=== PATIENT | male | born 1965 | race Caucasian/White ===

== ENCOUNTER 2016-07-08 03:40 | Emergency (ER) | payer BC, SELFPAY ==
[2016-07-08] MEDS ORDERED: ASPIRIN 81 MG CHEW TABLET As Ordered ONE (04:34)
[2016-07-08] MEDS ORDERED: GI COCKTAIL 50ML BTL(HYOSCYAMINE/MAALOX/LIDOCAINE VISCOUS)(1:3:1) As Ordered ONE (04:34)
[2016-07-08 04:43] LABS: BASO % 0.5 % (0.0-1.0); EOS # 0.1 K/mm3 (0.0-0.50); EOS % 2.3 % (0.0-3.0); LARGE UNSTAINED CELL # 0.1 K/mm3 (0.0-0.4); LARGE UNSTAINED CELL % 2.6 % (0.0-4.0); LYMPH # 2.6 K/mm3 (1.5-4.5); LYMPH % 45.1 % (24.0-44.0); MEAN CORPUSCULAR HEMOGLOBIN 31.2 pg (27.0-33.0); MEAN CORPUSCULAR HGB CONC 35.3 g/dl (32.0-36.5); MEAN CORPUSCULAR VOLUME 88.4 fl (80.0-96.0); MONO # 0.4 K/mm3 (0.0-0.8); MONO % 6.8 % (0.0-5.0); NEUTROPHILS # 2.3 K/mm3 (1.8-7.7); NEUTROPHILS % 42.6 % (36.0-66.0); PLATELET COUNT, AUTOMATED 174 k/mm3 (150-450); WHITE BLOOD COUNT 5.4 K/mm3 (4.0-10.0)
[2016-07-08 04:51] LABS: ANION GAP 10 MEQ/L (8-16); BLOOD UREA NITROGEN 17 MG/DL (7-18); CARBON DIOXIDE LEVEL 30 MEQ/L (21-32); CHLORIDE LEVEL 104 MEQ/L (98-107); CREATININE FOR GFR 0.99 MG/DL (0.70-1.30); GLOMERULAR FILTRATION RATE > 60.0 (>56); GLUCOSE, FASTING 108 MG/DL (70-105); POTASSIUM SERUM 3.6 MEQ/L (3.5-5.1); SODIUM LEVEL 144 MEQ/L (136-145)
--- NOTE | 2016-07-08 08:25 | REP ---
Clinical: Chest pain . Comparison: 12/30/06 . Technique: PA and lateral. Findings: The mediastinum and cardiac silhouette are normal. The lung cordova are clear and without acute consolidation, effusion, or pneumothorax. The skeletal structures are intact and normal. Impression: 1. No acute cardiopulmonary process. Signed by Vic Roldan MD 07/08/2016 08:17 A
--- NOTE | 2016-07-08 10:26 | EDDOCDS ---
Physician Documentation [facility] Name: Chintan Adkins Age: 51 yrs Sex: Male : 1965 Arrival Date: 07/08/2016 Time: 03:40 Bed OBSERVATION Private MD: Disposition: 07/08/16 10:00 Discharged to Home/Self Care. Impression: Chest pain, unspecified. - Condition is Stable. - Discharge Instructions: Nonspecific Chest Pain. - Medication Reconciliation, Local Pharmacy Hours form. - Follow up: Private Physician; When: Call to arrange an appointment; Reason: Continuance of care. - Problem is new. - Symptoms have improved. Historical: - Allergies: SULFA (SULFONAMIDES); - Home Meds: 1. none - PMHx: Sleep Apnea w/o CPAP; irregular heart beat; - PSHx: implant for irregular heart rate; Tonsillectomy; Hernia repair; Lasik Surgery; - Social history: Smoking status: Patient states was never smoker of tobacco. No barriers to communication noted, The patient speaks fluent Frisian, Speaks appropriately for age. - Family history: Not pertinent. - : The pt / caregiver states he / she is not on anticoagulants. Home medication list is obtained from the patient. - Exposure Risk Screening:: None identified. Vital Signs: 07/08 03:52 BP 171 / 91; Pulse 84; Resp 16; Pulse Ox 100% on R/A; Weight 93.89 kg / 206.99 lbs; cz Height 5 ft. 10 in. (177.80 cm); 03:55 Temp 98.6(TE); cz 03:59 BP 183 / 91 (auto/); mlc 03:59 Pulse 72 MON; Pulse Ox 100% ; mlc 04:19 BP 166 / 93 (auto/); mlc 04:19 Pulse 70 MON; Pulse Ox 96% ; mlc 04:37 Pulse 78 MON; Pulse Ox 96% ; mlc 04:46 Pulse 66 MON; Pulse Ox 97% ; mlc 04:46 BP 156 / 86 (auto/); mlc 04:59 BP 154 / 91 (auto/); mlc 04:59 Pulse 74 MON; Pulse Ox 95% ; mlc 05:19 BP 129 / 63 (auto/); mlc 05:20 Pulse 62 MON; Pulse Ox 94% ; mlc 05:39 Pulse 60 MON; Pulse Ox 96% ; mlc 05:39 BP 143 / 69 (auto/); mlc 05:59 Pulse 62 MON; Pulse Ox 92% ; mlc 05:59 BP 124 / 59 (auto/); mlc 06:19 BP 140 / 79 (auto/); mlc 06:19 Pulse 64 MON; Pulse Ox 95% ; mlc 06:26 Pulse 60 MON; Pulse Ox 95% ; mlc 08:36 BP 122 / 67 (auto/); ml6 08:36 Pulse 64 MON; Resp 16; Pulse Ox 94% on R/A; ml6 09:06 BP 106 / 52 (auto/); ml6 09:06 Pulse 64 MON; Resp 16; Pulse Ox 95% on R/A; ml6 09:36 BP 128 / 61 (auto/); ml6 09:36 Pulse 66 MON; Resp 16; Pulse Ox 97% on R/A; ml6 10:06 BP 113 / 56 (auto/); ml6 10:06 Pulse 66 MON; Resp 16; Pulse Ox 98% on R/A; Pain 0/10; ml6 10:20 BP 111 / 58; Pulse 65; Resp 16; Temp 98.3(O); Pulse Ox 98% on R/A; Pain 0/10; ml6 03:52 Body Mass Index 29.70 (93.89 kg, 177.80 cm) cz MDM: 03:45 ECG WITH READING ER PHYS+CARDIAG ordered. EDMS 04:30 Aspirin Chewable Tablet 243 mg PO once ordered. mm11 04:30 Bulb Weeder/Pulse Ox/q 30 min VS ordered. mm11 04:30 IV Saline Lock ordered. mm11 04:30 Rhythm Strip to chart ordered. mm11 04:30 Undress patient appropriately for examination ordered. mm11 04:31 Basic Metabolic Profile Ordered. EDMS 04:31 CBC with Diff Ordered. EDMS 04:31 Cardiac Injury Profile Ordered. EDMS 04:31 Troponin Ordered. EDMS 04:31 Chest, 2 View (pa\E\lat) Ordered. EDMS 04:33 GI Cocktail - (Alum-Mag Hydroxide-Simeth 30 ml, Lidocaine 10 ml, Hyoscyamine 10 ml) PO mm11 once; Pre-mixed 50mL unit dose ordered. 04:38 Financial registration complete. [facility] 04:38 [facility] Payment Agreement was scanned into [employer] and attached to record. [facility] 04:54 Basic Metabolic Profile Reviewed. mm11 04:54 CBC with Diff Reviewed. mm11 04:54 Cardiac Injury Profile Reviewed. mm11 04:54 Troponin Reviewed. mm11 05:53 Repeat EKG (put time details section) ordered. mm11 05:53 Redraw CIP &Troponin (put time in details section) ordered. mm11 05:57 Redraw CIP &Troponin (put time in details section) complete. ml3 05:57 Repeat EKG (put time details section) complete. ml3 05:57 CARDIAC MARKER PANEL Ordered. EDMS 05:58 Misc Automation Qa Analyst Order ordered. mm11 05:58 ECG WITH READING ER PHYS ordered. EDMS 05:59 Misc Automation Qa Analyst Order complete. ml3 06:27 The patient was assigned to Observation Status due to uncertainty of mm11 diagnosis/disposition, and remained under my care. Administered Medications: 04:38 Drug: Aspirin 243 mg [aspirin 81 mg chewable tablet (3 tabs)] Route: PO; mlc 05:25 Follow up: Response: No Adverse Reaction [facility] [place]:38 Drug: GI Cocktail - (Alum-Mag Hydroxide-Simeth Suspension 225 mg-200 mg-25 mg/5 mL 30 mlc ml, Lidocaine Liquid 2 % 10 ml, Hyoscyamine Liquid 10 ml) Route: PO; 05:25 Follow up: Response: Pain is decreased [facility] [place] Signatures: Dispatcher [employer] EDOliverio Segundo RN RN Vijay Chow, Yarn Mercerizer Operator Unit ml3 Ilia Garvey, DO DO mm11 Ilia Ziegler RN RN ml6 Yulissa Churchill RN RN [facility] [place] Zenobia Flores Aria Rodríguez MD MD The chart was reviewed and I authenticate all verbal orders and agree with the evaluation and treatment provided.Attachments: 04:38 [facility] Payment Agreement [facility]
--- NOTE | 2016-07-08 10:26 | EDDOCDS ---
Nurse's Notes [facility] Name: Chintan Adkins Age: 51 yrs Sex: Male : 1965 Arrival Date: 07/08/2016 Time: 03:40 Bed OBSERVATION Private MD: Diagnosis: Chest pain, unspecified Presentation: 07/08 03:46 Presenting complaint: Patient states: he started with chest pain at 0255 pt went away cz and returned presently pt denies chest pain at this time pt took antiacids at home. 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 Adult Sepsis Screening: The patient does not have new or worsening altered mentation. Patient's respiratory rate is less than 22. Systolic blood pressure is greater than 100. Patient has a qSOFA score of 0- Negative Sepsis Screen. Suicide/Homicide risk assessment- the patient denies having any suicidal and/or homicidal ideations and does not present with any other emotional, behavioral or mental health complaints. Status: Patient is not a environmental services coordinator or dependent. Transition of care: patient was not received from another setting of care. 03:46 Acuity: NAOMY Level 2 cz 03:46 Method Of Arrival: Walkin/Carried/Asstd cz 03:57 Red Flag criteria, patient assessed and taken directly to a bed. cz Triage Assessment: 03:52 General: Appears in no apparent distress. Pain: Denies pain. Pt Declines HIV testing. cz Historical: - Allergies: SULFA (SULFONAMIDES); - Home Meds: 1. none - PMHx: Sleep Apnea w/o CPAP; irregular heart beat; - PSHx: implant for irregular heart rate; Tonsillectomy; Hernia repair; Lasik Surgery; - Social history: Smoking status: Patient states was never smoker of tobacco. No barriers to communication noted, The patient speaks fluent Arabic, Speaks appropriately for age. - Family history: Not pertinent. - : The pt / caregiver states he / she is not on anticoagulants. Home medication list is obtained from the patient. - Exposure Risk Screening:: None identified. Screenin:59 Screening information is obtained from the patient. Fall risk: No risks identified. mlc Assistance ADL's: requires no assistance with activities of daily living. Abuse/DV Screen: The patient / caregiver reports he/she is: not in a situation that causes fear, pain or injury. Nutritional screening: No deficits noted. Advance Directives: Currently, there is a health care proxy, Sarah Charles, significant other . There is no Power of Bods Developer. home support is adequate. Assessment: 04:10 General: Appears in no apparent distress, comfortable, Behavior is cooperative. Pain: mlc Location: xyphoid area and mid-sternal area Pain currently is 1 out of 10 on a pain scale. Pain does not radiate. Neurological: Level of Consciousness is awake, alert, obeys commands, Oriented to person, place, time. Cardiovascular: Capillary refill < 3 seconds Heart tones S1 S2 present Rhythm is sinus rhythm. Respiratory: Airway is patent Respiratory effort is even, unlabored, Respiratory pattern is regular, Breath sounds are clear bilaterally. Derm: Skin is normal. 04:38 Reassessment: Patient appears in no apparent distress at this time. Patient states mlc symptoms have not improved. pt medicated per order. 05:24 Reassessment: Patient appears in no apparent distress at this time. Patient states mlc feeling better. pt ambulating to bathroom, tolerated well. resp easy/unlabored. pt reports decreased in chest pain after GI cocktail. . 06:32 Reassessment: Patient appears in no apparent distress at this time. pt resting mlc comfortably in bed, resp easy/unlabored. pt resting with eyes closed. . 07:25 General: Appears in no apparent distress, comfortable, Behavior is appropriate for age, ml6 cooperative. Pain: Denies pain. Neurological: No deficits noted. Level of Consciousness is awake, alert, Oriented to person, place, time. Cardiovascular: No deficits noted. Capillary refill < 3 seconds is brisk in bilateral fingers toes Heart tones S1 S2 present Edema is absent. Pulses are all present. Rhythm is regular. Respiratory: No deficits noted. Airway is patent Respiratory effort is even, unlabored, Respiratory pattern is regular, symmetrical, Breath sounds are clear bilaterally. GI: No deficits noted. Abdomen is flat, non- distended Bowel sounds present X 4 quads. 08:30 Reassessment: Patient appears in no apparent distress at this time. Patient denies pain ml6 at this time. Patient states feeling better. Patient states symptoms have improved. 09:30 Reassessment: Patient appears in no apparent distress at this time. Patient denies pain ml6 at this time. Patient states feeling better. Patient states symptoms have improved. patient awaiting test results. 10:16 General: Appears in no apparent distress, comfortable, Behavior is appropriate for age, ml6 cooperative. Pain: Denies pain. Neurological: No deficits noted. Level of Consciousness is awake, alert, Oriented to person, place, time. Cardiovascular: No deficits noted. Capillary refill < 3 seconds is brisk in bilateral fingers toes. Respiratory: No deficits noted. Airway is patent Respiratory effort is even, unlabored, Respiratory pattern is regular, symmetrical, Breath sounds are clear bilaterally. GI: Abdomen is flat, non- distended Bowel sounds present X 4 quads. Vital Signs: 03:52 BP 171 / 91; Pulse 84; Resp 16; Pulse Ox 100% on R/A; Weight 93.89 kg; Height 5 ft. 10 cz in. (177.80 cm); 03:55 Temp 98.6(TE); cz 03:59 BP 183 / 91 (auto/); mlc 03:59 Pulse 72 MON; Pulse Ox 100% ; mlc 04:19 BP 166 / 93 (auto/); mlc 04:19 Pulse 70 MON; Pulse Ox 96% ; mlc 04:37 Pulse 78 MON; Pulse Ox 96% ; mlc 04:46 Pulse 66 MON; Pulse Ox 97% ; mlc 04:46 BP 156 / 86 (auto/); mlc 04:59 BP 154 / 91 (auto/); mlc 04:59 Pulse 74 MON; Pulse Ox 95% ; mlc 05:19 BP 129 / 63 (auto/); mlc 05:20 Pulse 62 MON; Pulse Ox 94% ; mlc 05:39 Pulse 60 MON; Pulse Ox 96% ; mlc 05:39 BP 143 / 69 (auto/); mlc 05:59 Pulse 62 MON; Pulse Ox 92% ; mlc 05:59 BP 124 / 59 (auto/); mlc 06:19 BP 140 / 79 (auto/); mlc 06:19 Pulse 64 MON; Pulse Ox 95% ; mlc 06:26 Pulse 60 MON; Pulse Ox 95% ; mlc 08:36 BP 122 / 67 (auto/); ml6 08:36 Pulse 64 MON; Resp 16; Pulse Ox 94% on R/A; ml6 09:06 BP 106 / 52 (auto/); ml6 09:06 Pulse 64 MON; Resp 16; Pulse Ox 95% on R/A; ml6 09:36 BP 128 / 61 (auto/); ml6 09:36 Pulse 66 MON; Resp 16; Pulse Ox 97% on R/A; ml6 10:06 BP 113 / 56 (auto/); ml6 10:06 Pulse 66 MON; Resp 16; Pulse Ox 98% on R/A; Pain 0/10; ml6 10:20 BP 111 / 58; Pulse 65; Resp 16; Temp 98.3(O); Pulse Ox 98% on R/A; Pain 0/10; ml6 03:52 Body Mass Index 29.70 (93.89 kg, 177.80 cm) Vitals: 03:52 Log In Time: July 08, 2016 at 03:41. cz ED Course: 03:41 Patient visited by Meghan Solis Reg. hs2 03:41 Patient moved to Waiting hs2 03:42 Yulissa Churchill RN is Primary Nurse. cz 03:42 Patient moved to 10 cz 03:48 Ilia Garvey DO is Attending Physician. mm11 03:48 Patient visited by Ilia Garvey DO. mm11 03:49 Triage Initiated cz 03:59 tack puller machine on. Pulse ox on. NIBP on. mlc 03:59 Inserted saline lock: 18 gauge in left antecubital area and blood collected. [facility] patient tolerated the procedure well. 04:12 Patient visited by Yulissa Churchill RN. mlc 04:12 EKG done. (by ED staff). Reviewed by Ilia Garvey DO. mlc 04:19 The patient / caregiver is instructed regarding the plan of care and ED course. mlc 04:29 Patient visited by Ilia Garvye DO. mm11 04:32 Basic Metabolic Profile Sent. mlc 04:32 CBC with Diff Sent. mlc 04:32 Cardiac Injury Profile Sent. mlc 04:32 Troponin Sent. mlc 04:38 [facility] [place] Payment Agreement was scanned into [employer] and attached to record. sl 04:39 Patient visited by Yulissa Churchill RN. mlc 05:25 Patient visited by Yulissa Churchill RN. mlc 06:25 Patient visited by Ilia Garvey DO. mm11 06:33 Patient visited by Yulissa Churchill RN. mlc 07:01 Patient moved to OBSERVATION ml6 07:06 Attending Physician role handed off by Ilia Garvey DO fg 07:06 Aria Telles MD is Attending Physician. fg 07:58 Primary Nurse role handed off by Yulissa Churchill RN btw 08:46 Chest, 2 View (pa\E\lat) Returned. EDMS 09:02 CARDIAC MARKER PANEL Sent. ml6 09:15 EKG done. (by ED staff). Reviewed by Aria Telles MD. ct3 09:19 Patient visited by Rozina Nascimento PCA. ct3 10:20 Discontinued IV bleeding controlled, pressure dressing applied, No redness/swelling at ml6 site. No procedures done that require assistance. Administered Medications: 04:38 Drug: Aspirin 243 mg [aspirin 81 mg chewable tablet (3 tabs)] Route: PO; mlc 05:25 Follow up: Response: No Adverse Reaction mlc 04:38 Drug: GI Cocktail - (Alum-Mag Hydroxide-Simeth Suspension 225 mg-200 mg-25 mg/5 mL 30 mlc ml, Lidocaine Liquid 2 % 10 ml, Hyoscyamine Liquid 10 ml) Route: PO; 05:25 Follow up: Response: Pain is decreased [facility] [place] Order Results: Lab Order: Basic Metabolic Profile; [facility] 07/08/16 04:00 Test: GLUCOSE, FASTING; Value: 108; Range: 70-105; Abnormal: Above high normal; Units: MG/DL; Status: F Test: BLOOD UREA NITROGEN; Value: 17; Range: 7-18; Units: MG/DL; Status: F Test: CREATININE FOR GFR; Value: 0.99; Range: 0.70-1.30; Units: MG/DL; Status: F Test: GLOMERULAR FILTRATION RATE; Value: > 60.0; Range: >56; Status: F Test: SODIUM LEVEL; Value: 144; Range: 136-145; Units: MEQ/L; Status: F Test: POTASSIUM SERUM; Value: 3.6; Range: 3.5-5.1; Units: MEQ/L; Status: F Test: CHLORIDE LEVEL; Value: 104; Range: 98-107; Units: MEQ/L; Status: F Test: CARBON DIOXIDE LEVEL; Value: 30; Range: 21-32; Units: MEQ/L; Status: F Test: ANION GAP; Value: 10; Range: 8-16; Units: MEQ/L; Status: F Test: CALCIUM LEVEL; Value: 9.0; Range: 8.5-10.1; Units: MG/DL; Status: F Test Note: ; Units are mL/min/1.73 m2 Chronic Kidney Disease Staging per NKF: Stage I & II GFR >=60 Normal to Mildly Decreased Stage III GFR 30-59 Moderately Decreased Stage IV GFR 15-29 Severely Decreased Stage V GFR <15 Very Little GFR Left ESRD GFR <15 on DIE WELDER Lab Order: CBC with Diff; SPEC'M 07/08/16 04:00 Test: WHITE BLOOD COUNT; Value: 5.4; Range: 4.0-10.0; Units: K/mm3; Status: F Test: RED BLOOD COUNT; Value: 4.96; Range: 4.30-6.10; Units: M/mm3; Status: F Test: HEMOGLOBIN; Value: 15.5; Range: 14.0-18.0; Units: g/dl; Status: F Test: HEMATOCRIT; Value: 43.8; Range: 42.0-52.0; Units: %; Status: F Test: MEAN CORPUSCULAR VOLUME; Value: 88.4; Range: 80.0-96.0; Units: fl; Status: F Test: MEAN CORPUSCULAR HEMOGLOBIN; Value: 31.2; Range: 27.0-33.0; Units: pg; Status: F Test: MEAN CORPUSCULAR HGB CONC; Value: 35.3; Range: 32.0-36.5; Units: g/dl; Status: F Test: RED CELL DISTRIBUTION WIDTH; Value: 12.0; Range: 11.5-14.5; Units: %; Status: F Test: PLATELET COUNT, AUTOMATED; Value: 174; Range: 150-450; Units: k/mm3; Status: F Test: NEUTROPHILS %; Value: 42.6; Range: 36.0-66.0; Units: %; Status: F Test: LYMPH %; Value: 45.1; Range: 24.0-44.0; Abnormal: Above high normal; Units: %; Status: F Test: MONO %; Value: 6.8; Range: 0.0-5.0; Abnormal: Above high normal; Units: %; Status: F Test: EOS %; Value: 2.3; Range: 0.0-3.0; Units: %; Status: F Test: BASO %; Value: 0.5; Range: 0.0-1.0; Units: %; Status: F Test: LARGE UNSTAINED CELL %; Value: 2.6; Range: 0.0-4.0; Units: %; Status: F Test: NEUTROPHILS #; Value: 2.3; Range: 1.8-7.7; Units: K/mm3; Status: F Test: LYMPH #; Value: 2.6; Range: 1.5-4.5; Units: K/mm3; Status: F Test: MONO #; Value: 0.4; Range: 0.0-0.8; Units: K/mm3; Status: F Test: EOS #; Value: 0.1; Range: 0.0-0.50; Units: K/mm3; Status: F Test: BASO #; Value: 0.0; Range: 0.0-0.2; Units: K/mm3; Status: F Test: LARGE UNSTAINED CELL #; Value: 0.1; Range: 0.0-0.4; Units: K/mm3; Status: F Lab Order: Cardiac Injury Profile; SPEC'M 07/08/16 04:00 Test: CPK CREATINE PHOSPHOKINASE; Value: 116; Range: 39-308; Units: U/L; Status: F Test: CK-MB VALUE MASS; Value: 1.0; Range: 0.0-3.6; Units: NG/ML; Status: F Test: MB/CK RELATIVE INDEX; Value: 0.86; Range: < OR =4; Status: F Test Note: ; DIAGNOSIS CRITERIA MMB ng/ml Relative Index (RI) NON-AMI < or = 5 N/A LOVE ZONE > 5 < or = 4 AMI > 5 > 4 Lab Order: Troponin; SPEC'M 07/08/16 04:00 Test: TROPONIN I; Value: < 0.02; Range: < 0.10; Units: NG/ML; Status: F Test Note: ; Troponin I Reference Interval for [employer] LOCI: 99th Percentile= 0.00-0.045 ng/ml Risk Stratification: <= 0.10 ng/ml Decreased Risk for Adverse Clinical Events. 0.10-1.50 ng/ml Increased Risk for Adverse Clinical Events. Evaluation of additional criterion and/or repeat testing in 2-6 hours is suggested to rule out myocardial damage. >= 1.50 ng/ml Indicative of Myocardial Injury. Lab Order: CARDIAC MARKER PANEL; SPEC'M 07/08/16 09:01 Test: CPK CREATINE PHOSPHOKINASE; Value: 110; Range: 39-308; Units: U/L; Status: F Test: CK-MB VALUE MASS; Value: 1.0; Range: 0.0-3.6; Units: NG/ML; Status: F Test: MB/CK RELATIVE INDEX; Value: 0.90; Range: < OR =4; Status: F Test: TROPONIN I; Value: < 0.02; Range: < 0.10; Units: NG/ML; Status: F Test Note: ; DIAGNOSIS CRITERIA MMB ng/ml Relative Index (RI) NON-AMI < or = 5 N/A LOVE ZONE > 5 < or = 4 AMI > 5 > 4 Radiology Order: Chest, 2 View (pa\E\lat) Test: Chest, 2 View (pa\E\lat) REASON FOR EXAMINATION: Chest Pain; Clinical: Chest pain .; ; Comparison: 12/30/06 .; ; Technique: PA and lateral.; ; Findings:; The mediastinum and cardiac silhouette are normal. The lung cordova are clear and; without acute consolidation, effusion, or pneumothorax. The skeletal structures; are intact and normal.; ; Impression:; 1. No acute cardiopulmonary process.; ; ; Signed by; Vic Roldan MD 07/08/2016 08:17 A; Outcome: 10:00 Discharge ordered by Provider. fg 10:25 Discharge Assessment: patient administered narcotics - no. The following High Risk ml6 Discharge criteria are identified: None. Discharged to home ambulatory. Condition: stable. Discharge instructions given to patient, Instructed on discharge instructions, follow up and referral plans. medication usage, Demonstrated understanding of instructions, medications, Pt was receptive of discharge instructions/ teaching. No special radiology studies were completed. Property :Personal belongings accompany Pt. 10:25 Patient left the ED. ml6 Signatures: Dispatcher [employer] EDMS Oliverio Hope RN RN cz Maynard, Matthew, DO DO mm11 Ilia Ziegler RN RN ml6 Roly Rowan PA PA robw Rozina Nascimento, COMPRESSOR STATION CHIEF ENGINEER COMPRESSOR STATION CHIEF ENGINEER ct3 Churchill,Yulissa,NEREYDA RN anjali Flores, Aria May MD MD fg Stanton, Hillary, Reg Reg hs2 MTDD
--- NOTE | 2016-07-08 19:40 | ECGEPIP ---
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
--- NOTE | 2016-07-08 19:44 | ECGEPIP ---
Stationary ECG Study [facility] - ED Test Date: 2016-07-08 Pat Name: RADHA RAMSEY Department: Room: - Gender: M Patient Liaison: ct : 1965 Requested By: JENNIFER Daniels Order Number: [id number] Reading MD: [place] Measurements Intervals [place] Rate: 61 P: 25 SD: 179 QRS: 11 QRSD: 96 T: -4 QT: 372 QTc: 375 Interpretive Statements SINUS RHYTHM NSTTW ABNORMALITY SIMILAR 4:08 Electronically Signed On 07-08-2016 19:44:00 EST by [place]
--- NOTE | 2016-07-10 11:26 | EDDOCDS ---
Physician Documentation [facility] Name: Chintan Adkins Age: 51 yrs Sex: Male : 1965 Arrival Date: 07/08/2016 Time: 03:40 Bed OBSERVATION Private MD: Disposition: 07/08/16 10:00 Discharged to Home/Self Care. Impression: Chest pain, unspecified. - Condition is Stable. - Discharge Instructions: Nonspecific Chest Pain. - Medication Reconciliation, Local Pharmacy Hours form. - Follow up: Private Physician; When: Call to arrange an appointment; Reason: Continuance of care. - Problem is new. - Symptoms have improved. Historical: - Allergies: SULFA (SULFONAMIDES); - Home Meds: 1. none - PMHx: Sleep Apnea w/o CPAP; irregular heart beat; - PSHx: implant for irregular heart rate; Tonsillectomy; Hernia repair; Lasik Surgery; - Social history: Smoking status: Patient states was never smoker of tobacco. No barriers to communication noted, The patient speaks fluent Sami, Speaks appropriately for age. - Family history: Not pertinent. - : The pt / caregiver states he / she is not on anticoagulants. Home medication list is obtained from the patient. - Exposure Risk Screening:: None identified. Vital Signs: 07/08 03:52 BP 171 / 91; Pulse 84; Resp 16; Pulse Ox 100% on R/A; Weight 93.89 kg / 206.99 lbs; cz Height 5 ft. 10 in. (177.80 cm); 03:55 Temp 98.6(TE); cz 03:59 BP 183 / 91 (auto/); mlc 03:59 Pulse 72 MON; Pulse Ox 100% ; mlc 04:19 BP 166 / 93 (auto/); mlc 04:19 Pulse 70 MON; Pulse Ox 96% ; mlc 04:37 Pulse 78 MON; Pulse Ox 96% ; mlc 04:46 Pulse 66 MON; Pulse Ox 97% ; mlc 04:46 BP 156 / 86 (auto/); mlc 04:59 BP 154 / 91 (auto/); mlc 04:59 Pulse 74 MON; Pulse Ox 95% ; mlc 05:19 BP 129 / 63 (auto/); mlc 05:20 Pulse 62 MON; Pulse Ox 94% ; mlc 05:39 Pulse 60 MON; Pulse Ox 96% ; mlc 05:39 BP 143 / 69 (auto/); mlc 05:59 Pulse 62 MON; Pulse Ox 92% ; mlc 05:59 BP 124 / 59 (auto/); mlc 06:19 BP 140 / 79 (auto/); mlc 06:19 Pulse 64 MON; Pulse Ox 95% ; mlc 06:26 Pulse 60 MON; Pulse Ox 95% ; mlc 08:36 BP 122 / 67 (auto/); ml6 08:36 Pulse 64 MON; Resp 16; Pulse Ox 94% on R/A; ml6 09:06 BP 106 / 52 (auto/); ml6 09:06 Pulse 64 MON; Resp 16; Pulse Ox 95% on R/A; ml6 09:36 BP 128 / 61 (auto/); ml6 09:36 Pulse 66 MON; Resp 16; Pulse Ox 97% on R/A; ml6 10:06 BP 113 / 56 (auto/); ml6 10:06 Pulse 66 MON; Resp 16; Pulse Ox 98% on R/A; Pain 0/10; ml6 10:20 BP 111 / 58; Pulse 65; Resp 16; Temp 98.3(O); Pulse Ox 98% on R/A; Pain 0/10; ml6 03:52 Body Mass Index 29.70 (93.89 kg, 177.80 cm) cz MDM: 03:45 ECG WITH READING ER PHYS+CARDIAG ordered. EDMS 04:30 Aspirin Chewable Tablet 243 mg PO once ordered. mm11 04:30 Manager Medical Writing/Pulse Ox/q 30 min VS ordered. mm11 04:30 IV Saline Lock ordered. mm11 04:30 Rhythm Strip to chart ordered. mm11 04:30 Undress patient appropriately for examination ordered. mm11 04:31 Basic Metabolic Profile Ordered. EDMS 04:31 CBC with Diff Ordered. EDMS 04:31 Cardiac Injury Profile Ordered. EDMS 04:31 Troponin Ordered. EDMS 04:31 Chest, 2 View (pa\E\lat) Ordered. EDMS 04:33 GI Cocktail - (Alum-Mag Hydroxide-Simeth 30 ml, Lidocaine 10 ml, Hyoscyamine 10 ml) PO mm11 once; Pre-mixed 50mL unit dose ordered. 04:38 Financial registration complete. [facility] 04:38 [place] [place] was scanned into [employer] and attached to record. [facility] 04:54 Basic Metabolic Profile Reviewed. mm11 04:54 CBC with Diff Reviewed. mm11 04:54 Cardiac Injury Profile Reviewed. mm11 04:54 Troponin Reviewed. mm11 05:53 Repeat EKG (put time details section) ordered. mm11 05:53 Redraw CIP &Troponin (put time in details section) ordered. mm11 05:57 Redraw CIP &Troponin (put time in details section) complete. ml3 05:57 Repeat EKG (put time details section) complete. ml3 05:57 CARDIAC MARKER PANEL Ordered. EDMS 05:58 Misc Wool Presser Order ordered. mm11 05:58 ECG WITH READING ER PHYS ordered. EDMS 05:59 Misc Wool Presser Order complete. ml3 06:27 The patient was assigned to Observation Status due to uncertainty of mm11 diagnosis/disposition, and remained under my care. 13:55 T-Sheet-- Draft Copy was scanned into [employer] and attached to record. 13:56 ECG/EKG was scanned into [employer] and attached to record. gb Administered Medications: 04:38 Drug: Aspirin 243 mg [aspirin 81 mg chewable tablet (3 tabs)] Route: PO; [facility] [place] 05:25 Follow up: Response: No Adverse Reaction [facility] [place] 04:38 Drug: GI Cocktail - (Alum-Mag Hydroxide-Simeth Suspension 225 mg-200 mg-25 mg/5 mL 30 mlc ml, Lidocaine Liquid 2 % 10 ml, Hyoscyamine Liquid 10 ml) Route: PO; 05:25 Follow up: Response: Pain is decreased mlc Signatures: Dispatcher [employer] EDME Oliverio Hope RN RN cz Barnhardt, Gloria, Reg Reg gb Vijay Chow, Dance [employer] Host[employer] ml3 Ilia Garvey, DO DO mm11 Ilia Ziegler, NEREYDA RN ml6 Yulissa Churchill RN RN mlc Hook, Sandra Aria Rodríguez MD MD fg The chart was reviewed and I authenticate all verbal orders and agree with the evaluation and treatment provided.Attachments: 04:38 [place] [facility] [place] [facility] 13:55 T-Sheet-- Draft Copy 13:56 ECG/EKG gb Chart Complete MTDD
--- NOTE | 2016-07-10 11:26 | EDDOCDS ---
Nurse's Notes [facility] Name: Radha Adkins Age: 51 yrs Sex: Male : 1965 Arrival Date: 07/08/2016 Time: 03:40 Bed OBSERVATION Private MD: Diagnosis: Chest pain, unspecified Presentation: 07/08 03:46 Presenting complaint: Patient states: he started with chest pain at 0255 pt went away cz and returned presently pt denies chest pain at this time pt took antiacids at home. Aspirin was taken GASKET NOTCHER. Adult Sepsis Screening: The patient does not have new or worsening altered mentation. Patient's respiratory rate is less than 22. Systolic blood pressure is greater than 100. Patient has a qSOFA score of 0- Negative Sepsis Screen. Suicide/Homicide risk assessment- the patient denies having any suicidal and/or homicidal ideations and does not present with any other emotional, behavioral or mental health complaints. Status: Patient is not a cashier self service gasoline or dependent. Transition of care: patient was not received from another setting of care. 03:46 Acuity: NAOMY Level 2 cz 03:46 Method Of Arrival: Walkin/Carried/Asstd cz 03:57 Red Flag criteria, patient assessed and taken directly to a bed. cz Triage Assessment: 03:52 General: Appears in no apparent distress. Pain: Denies pain. Pt Declines HIV testing. cz Historical: - Allergies: SULFA (SULFONAMIDES); - Home Meds: 1. none - PMHx: Sleep Apnea w/o CPAP; irregular heart beat; - PSHx: implant for irregular heart rate; Tonsillectomy; Hernia repair; Lasik Surgery; - Social history: Smoking status: Patient states was never smoker of tobacco. No barriers to communication noted, The patient speaks fluent Persian, Speaks appropriately for age. - Family history: Not pertinent. - : The pt / caregiver states he / she is not on anticoagulants. Home medication list is obtained from the patient. - Exposure Risk Screening:: None identified. Screenin:59 Screening information is obtained from the patient. Fall risk: No risks identified. mlc Assistance ADL's: requires no assistance with activities of daily living. Abuse/DV Screen: The patient / caregiver reports he/she is: not in a situation that causes fear, pain or injury. Nutritional screening: No deficits noted. Advance Directives: Currently, there is a health care proxy, Sarah Charles, significant other . There is no Power of [employer]. home support is adequate. Assessment: 04:10 General: Appears in no apparent distress, comfortable, Behavior is cooperative. Pain: mlc Location: xyphoid area and mid-sternal area Pain currently is 1 out of 10 on a pain scale. Pain does not radiate. Neurological: Level of Consciousness is awake, alert, obeys commands, Oriented to person, place, time. Cardiovascular: Capillary refill < 3 seconds Heart tones S1 S2 present Rhythm is sinus rhythm. Respiratory: Airway is patent Respiratory effort is even, unlabored, Respiratory pattern is regular, Breath sounds are clear bilaterally. Derm: Skin is normal. 04:38 Reassessment: Patient appears in no apparent distress at this time. Patient states mlc symptoms have not improved. pt medicated per order. 05:24 Reassessment: Patient appears in no apparent distress at this time. Patient states mlc feeling better. pt ambulating to bathroom, tolerated well. resp easy/unlabored. pt reports decreased in chest pain after GI cocktail. . 06:32 Reassessment: Patient appears in no apparent distress at this time. pt resting mlc comfortably in bed, resp easy/unlabored. pt resting with eyes closed. . 07:25 General: Appears in no apparent distress, comfortable, Behavior is appropriate for age, ml6 cooperative. Pain: Denies pain. Neurological: No deficits noted. Level of Consciousness is awake, alert, Oriented to person, place, time. Cardiovascular: No deficits noted. Capillary refill < 3 seconds is brisk in bilateral fingers toes Heart tones S1 S2 present Edema is absent. Pulses are all present. Rhythm is regular. Respiratory: No deficits noted. Airway is patent Respiratory effort is even, unlabored, Respiratory pattern is regular, symmetrical, Breath sounds are clear bilaterally. GI: No deficits noted. Abdomen is flat, non- distended Bowel sounds present X 4 quads. 08:30 Reassessment: Patient appears in no apparent distress at this time. Patient denies pain ml6 at this time. Patient states feeling better. Patient states symptoms have improved. 09:30 Reassessment: Patient appears in no apparent distress at this time. Patient denies pain ml6 at this time. Patient states feeling better. Patient states symptoms have improved. patient awaiting test results. 10:16 General: Appears in no apparent distress, comfortable, Behavior is appropriate for age, ml6 cooperative. Pain: Denies pain. Neurological: No deficits noted. Level of Consciousness is awake, alert, Oriented to person, place, time. Cardiovascular: No deficits noted. Capillary refill < 3 seconds is brisk in bilateral fingers toes. Respiratory: No deficits noted. Airway is patent Respiratory effort is even, unlabored, Respiratory pattern is regular, symmetrical, Breath sounds are clear bilaterally. GI: Abdomen is flat, non- distended Bowel sounds present X 4 quads. Vital Signs: 03:52 BP 171 / 91; Pulse 84; Resp 16; Pulse Ox 100% on R/A; Weight 93.89 kg; Height 5 ft. 10 cz in. (177.80 cm); 03:55 Temp 98.6(TE); cz 03:59 BP 183 / 91 (auto/); mlc 03:59 Pulse 72 MON; Pulse Ox 100% ; mlc 04:19 BP 166 / 93 (auto/); mlc 04:19 Pulse 70 MON; Pulse Ox 96% ; mlc 04:37 Pulse 78 MON; Pulse Ox 96% ; mlc 04:46 Pulse 66 MON; Pulse Ox 97% ; mlc 04:46 BP 156 / 86 (auto/); mlc 04:59 BP 154 / 91 (auto/); mlc 04:59 Pulse 74 MON; Pulse Ox 95% ; mlc 05:19 BP 129 / 63 (auto/); mlc 05:20 Pulse 62 MON; Pulse Ox 94% ; mlc 05:39 Pulse 60 MON; Pulse Ox 96% ; mlc 05:39 BP 143 / 69 (auto/); mlc 05:59 Pulse 62 MON; Pulse Ox 92% ; mlc 05:59 BP 124 / 59 (auto/); mlc 06:19 BP 140 / 79 (auto/); mlc 06:19 Pulse 64 MON; Pulse Ox 95% ; mlc 06:26 Pulse 60 MON; Pulse Ox 95% ; mlc 08:36 BP 122 / 67 (auto/); ml6 08:36 Pulse 64 MON; Resp 16; Pulse Ox 94% on R/A; ml6 09:06 BP 106 / 52 (auto/); ml6 09:06 Pulse 64 MON; Resp 16; Pulse Ox 95% on R/A; ml6 09:36 BP 128 / 61 (auto/); ml6 09:36 Pulse 66 MON; Resp 16; Pulse Ox 97% on R/A; ml6 10:06 BP 113 / 56 (auto/); ml6 10:06 Pulse 66 MON; Resp 16; Pulse Ox 98% on R/A; Pain 0/10; ml6 10:20 BP 111 / 58; Pulse 65; Resp 16; Temp 98.3(O); Pulse Ox 98% on R/A; Pain 0/10; ml6 03:52 Body Mass Index 29.70 (93.89 kg, 177.80 cm) Vitals: 03:52 Log In Time: July 08, 2016 at 03:41. cz ED Course: 03:41 Patient visited by Meghan Solis Reg. hs2 03:41 Patient moved to Waiting hs2 03:42 Yulissa Churchill RN is Primary Nurse. cz 03:42 Patient moved to 10 cz 03:48 Jennifer Garvey DO is Attending Physician. mm11 03:48 Patient visited by Jennifer Garvey DO. mm11 03:49 Triage Initiated cz 03:59 monitor technician on. Pulse ox on. NIBP on. mlc 03:59 Inserted saline lock: 18 gauge in left antecubital area and blood collected. [place] [facility] [place] tolerated the procedure well. 04:12 Patient visited by Yulissa Churchill RN. mlc 04:12 EKG done. (by ED staff). Reviewed by Jennifer Garvey DO. mlc 04:19 The patient / caregiver is instructed regarding the plan of care and ED course. mlc 04:29 Patient visited by Jennifer Garvey DO. mm11 04:32 Basic Metabolic Profile Sent. mlc 04:32 CBC with Diff Sent. mlc 04:32 Cardiac Injury Profile Sent. mlc 04:32 Troponin Sent. mlc 04:38 [facility] [place] Agreement was scanned into [employer] and attached to record. sl 04:39 Patient visited by Yulissa Churchill RN. mlc 05:25 Patient visited by Yulissa Churchill RN. mlc 06:25 Patient visited by Jennifer Garvey DO. mm11 06:33 Patient visited by Yulissa Churchill RN. mlc 07:01 Patient moved to OBSERVATION ml6 07:06 Attending Physician role handed off by Jennifer Garvey DO fg 07:06 Aria Telles MD is Attending Physician. fg 07:58 Primary Nurse role handed off by Yulissa Churchill RN btw 08:46 Chest, 2 View (pa\E\lat) Returned. EDMS 09:02 CARDIAC MARKER PANEL Sent. ml6 09:15 EKG done. (by ED staff). Reviewed by Aria Telles MD. ct3 09:19 Patient visited by Rozina Nascimento PCA. ct3 10:20 Discontinued IV bleeding controlled, pressure dressing applied, No redness/swelling at ml6 site. No procedures done that require assistance. 13:55 T-Sheet-- Draft Copy was scanned into [employer] and attached to record. gb 13:56 ECG/EKG was scanned into [employer] and attached to record. gb 20:06 EKG-ADULT Returned. EDMS 20:06 ECG WITH READING ER PHYS Returned. EDMS Administered Medications: 04:38 Drug: Aspirin 243 mg [aspirin 81 mg chewable tablet (3 tabs)] Route: PO; mlc 05:25 Follow up: Response: No Adverse Reaction [facility] [place] Drug: GI Cocktail - (Alum-Mag Hydroxide-Simeth Suspension 225 mg-200 mg-25 mg/5 mL 30 mlc ml, Lidocaine Liquid 2 % 10 ml, Hyoscyamine Liquid 10 ml) Route: PO; 05:25 Follow up: Response: Pain is decreased mlc Order Results: Lab Order: Basic Metabolic Profile; SPEC'M 07/08/16 04:00 Test: GLUCOSE, FASTING; Value: 108; Range: 70-105; Abnormal: Above high normal; Units: MG/DL; Status: F Test: BLOOD UREA NITROGEN; Value: 17; Range: 7-18; Units: MG/DL; Status: F Test: CREATININE FOR GFR; Value: 0.99; Range: 0.70-1.30; Units: MG/DL; Status: F Test: GLOMERULAR FILTRATION RATE; Value: > 60.0; Range: >56; Status: F Test: SODIUM LEVEL; Value: 144; Range: 136-145; Units: MEQ/L; Status: F Test: POTASSIUM SERUM; Value: 3.6; Range: 3.5-5.1; Units: MEQ/L; Status: F Test: CHLORIDE LEVEL; Value: 104; Range: 98-107; Units: MEQ/L; Status: F Test: CARBON DIOXIDE LEVEL; Value: 30; Range: 21-32; Units: MEQ/L; Status: F Test: ANION GAP; Value: 10; Range: 8-16; Units: MEQ/L; Status: F Test: CALCIUM LEVEL; Value: 9.0; Range: 8.5-10.1; Units: MG/DL; Status: F Test Note: ; Units are mL/min/1.73 m2 Chronic Kidney Disease Staging per NKF: Stage I & II GFR >=60 Normal to Mildly Decreased Stage III GFR 30-59 Moderately Decreased Stage IV GFR 15-29 Severely Decreased Stage V GFR <15 Very Little GFR Left ESRD GFR <15 on ELIGIBILITY CLERK Lab Order: CBC with Diff; SPEC'M 07/08/16 04:00 Test: WHITE BLOOD COUNT; Value: 5.4; Range: 4.0-10.0; Units: K/mm3; Status: F Test: RED BLOOD COUNT; Value: 4.96; Range: 4.30-6.10; Units: M/mm3; Status: F Test: HEMOGLOBIN; Value: 15.5; Range: 14.0-18.0; Units: g/dl; Status: F Test: HEMATOCRIT; Value: 43.8; Range: 42.0-52.0; Units: %; Status: F Test: MEAN CORPUSCULAR VOLUME; Value: 88.4; Range: 80.0-96.0; Units: fl; Status: F Test: MEAN CORPUSCULAR HEMOGLOBIN; Value: 31.2; Range: 27.0-33.0; Units: pg; Status: F Test: MEAN CORPUSCULAR HGB CONC; Value: 35.3; Range: 32.0-36.5; Units: g/dl; Status: F Test: RED CELL DISTRIBUTION WIDTH; Value: 12.0; Range: 11.5-14.5; Units: %; Status: F Test: PLATELET COUNT, AUTOMATED; Value: 174; Range: 150-450; Units: k/mm3; Status: F Test: NEUTROPHILS %; Value: 42.6; Range: 36.0-66.0; Units: %; Status: F Test: LYMPH %; Value: 45.1; Range: 24.0-44.0; Abnormal: Above high normal; Units: %; Status: F Test: MONO %; Value: 6.8; Range: 0.0-5.0; Abnormal: Above high normal; Units: %; Status: F Test: EOS %; Value: 2.3; Range: 0.0-3.0; Units: %; Status: F Test: BASO %; Value: 0.5; Range: 0.0-1.0; Units: %; Status: F Test: LARGE UNSTAINED CELL %; Value: 2.6; Range: 0.0-4.0; Units: %; Status: F Test: NEUTROPHILS #; Value: 2.3; Range: 1.8-7.7; Units: K/mm3; Status: F Test: LYMPH #; Value: 2.6; Range: 1.5-4.5; Units: K/mm3; Status: F Test: MONO #; Value: 0.4; Range: 0.0-0.8; Units: K/mm3; Status: F Test: EOS #; Value: 0.1; Range: 0.0-0.50; Units: K/mm3; Status: F Test: BASO #; Value: 0.0; Range: 0.0-0.2; Units: K/mm3; Status: F Test: LARGE UNSTAINED CELL #; Value: 0.1; Range: 0.0-0.4; Units: K/mm3; Status: F Lab Order: Cardiac Injury Profile; SPEC' 07/08/16 04:00 Test: CPK CREATINE PHOSPHOKINASE; Value: 116; Range: 39-308; Units: U/L; Status: F Test: CK-MB VALUE MASS; Value: 1.0; Range: 0.0-3.6; Units: NG/ML; Status: F Test: MB/CK RELATIVE INDEX; Value: 0.86; Range: < OR =4; Status: F Test Note: ; DIAGNOSIS CRITERIA MMB ng/ml Relative Index (RI) NON-AMI < or = 5 N/A LOVE ZONE > 5 < or = 4 AMI > 5 > 4 Lab Order: Troponin; SPEC'M 07/08/16 04:00 Test: TROPONIN I; Value: < 0.02; Range: < 0.10; Units: NG/ML; Status: F Test Note: ; Troponin I Reference Interval for [employer]ens [employer] LOCI: 99th Percentile= 0.00-0.045 ng/ml Risk Stratification: <= 0.10 ng/ml Decreased Risk for Adverse Clinical Events. 0.10-1.50 ng/ml Increased Risk for Adverse Clinical Events. Evaluation of additional criterion and/or repeat testing in 2-6 hours is suggested to rule out myocardial damage. >= 1.50 ng/ml Indicative of Myocardial Injury. Lab Order: CARDIAC MARKER PANEL; SPEC'M 07/08/16 09:01 Test: CPK CREATINE PHOSPHOKINASE; Value: 110; Range: 39-308; Units: U/L; Status: F Test: CK-MB VALUE MASS; Value: 1.0; Range: 0.0-3.6; Units: NG/ML; Status: F Test: MB/CK RELATIVE INDEX; Value: 0.90; Range: < OR =4; Status: F Test: TROPONIN I; Value: < 0.02; Range: < 0.10; Units: NG/ML; Status: F Test Note: ; DIAGNOSIS CRITERIA MMB ng/ml Relative Index (RI) NON-AMI < or = 5 N/A LOVE ZONE > 5 < or = 4 AMI > 5 > 4 Radiology Order: EKG-ADULT Test: EKG-ADULT REASON FOR EXAMINATION: Chest Pain; Stationary ECG Study; [facility] - ED; ; Test Date: 2016-07-08; Pat Name: RADHA ADKINS Department:; Room: -; Gender: M Parts Manager: tova; : 1965 Requested By: JENNIFER Daniels; Order Number: [id number] Reading MD: [place]; Measurements; Intervals Lindsay; Rate: 62 P: 20; ND: 191 QRS: 10; QRSD: 98 T: -2; QT: 359; QTc: 367; Interpretive Statements; SINUS RHYTHM; NSTTW ABNORMALITY; SIMILAR 09/26/14; Electronically Signed On 07-08-2016 19:40:23 EST by [place]; Radiology Order: Chest, 2 View (pa\E\lat) Test: Chest, 2 View (pa\E\lat) REASON FOR EXAMINATION: Chest Pain; Clinical: Chest pain .; ; Comparison: 12/30/06 .; ; Technique: PA and lateral.; ; Findings:; The mediastinum and cardiac silhouette are normal. The lung cordova are clear and; without acute consolidation, effusion, or pneumothorax. The skeletal structures; are intact and normal.; ; Impression:; 1. No acute cardiopulmonary process.; ; ; Signed by; Vic Roldan MD 07/08/2016 08:17 A; Radiology Order: ECG WITH READING ER PHYS Test: ECG WITH READING ER PHYS REASON FOR EXAMINATION: CX PN; Stationary ECG Study; [facility] - ED; ; Test Date: 2016-07-08; Pat Name: RADHA ADKINS Department:; Room: -; Gender: M Parts Manager: ct; : 1965 Requested By: JENNIFER Daniels; Order Number: [id number] Reading MD: [place]; Measurements; Intervals Lindsay; Rate: 61 P: 25; ND: 179 QRS: 11; QRSD: 96 T: -4; QT: 372; QTc: 375; Interpretive Statements; SINUS RHYTHM; NSTTW ABNORMALITY; SIMILAR 4:08; Electronically Signed On 07-08-2016 19:44:00 EST by [place]; Outcome: 10:00 Discharge ordered by Provider. fg 10:25 Discharge Assessment: patient administered narcotics - no. The following High Risk ml6 Discharge criteria are identified: None. Discharged to home ambulatory. Condition: stable. Discharge instructions given to patient, Instructed on discharge instructions, follow up and referral plans. medication usage, Demonstrated understanding of instructions, medications, Pt was receptive of discharge instructions/ teaching. No special radiology studies were completed. Property :Personal belongings accompany Pt. 10:25 Patient left the ED. ml6 Signatures: Dispatcher [employer] EDMS Oliverio Hope RN RN cz Barnhardt, Gloria, Reg Reg gb Jennifer Garvey DO DO mm11 Jennifer Ziegler RN RN ml6 Roly Rowan PA PA btw Rozina Nascimento, METAL LATHER METAL LATHER ct3 Yulissa Churchill RN RN mlc Hook, Sandra slh Gill, Frances, MD MD Meghan Solis, Reg Reg hs2 Chart Complete MTDD
--- NOTE | 2016-07-10 11:27 | EDDOCDS ---
Physician Documentation [facility] Name: Chintan Adkins Age: 51 yrs Sex: Male : 1965 Arrival Date: 07/08/2016 Time: 03:40 Bed OBSERVATION Private MD: Disposition: 07/08/16 10:00 Discharged to Home/Self Care. Impression: Chest pain, unspecified. - Condition is Stable. - Discharge Instructions: Nonspecific Chest Pain. - Medication Reconciliation, Local Pharmacy Hours form. - Follow up: Private Physician; When: Call to arrange an appointment; Reason: Continuance of care. - Problem is new. - Symptoms have improved. Historical: - Allergies: SULFA (SULFONAMIDES); - Home Meds: 1. none - PMHx: Sleep Apnea w/o CPAP; irregular heart beat; - PSHx: implant for irregular heart rate; Tonsillectomy; Hernia repair; Lasik Surgery; - Social history: Smoking status: Patient states was never smoker of tobacco. No barriers to communication noted, The patient speaks fluent Persian, Speaks appropriately for age. - Family history: Not pertinent. - : The pt / caregiver states he / she is not on anticoagulants. Home medication list is obtained from the patient. - Exposure Risk Screening:: None identified. Vital Signs: 07/08 03:52 BP 171 / 91; Pulse 84; Resp 16; Pulse Ox 100% on R/A; Weight 93.89 kg / 206.99 lbs; cz Height 5 ft. 10 in. (177.80 cm); 03:55 Temp 98.6(TE); cz 03:59 BP 183 / 91 (auto/); mlc 03:59 Pulse 72 MON; Pulse Ox 100% ; mlc 04:19 BP 166 / 93 (auto/); mlc 04:19 Pulse 70 MON; Pulse Ox 96% ; mlc 04:37 Pulse 78 MON; Pulse Ox 96% ; mlc 04:46 Pulse 66 MON; Pulse Ox 97% ; mlc 04:46 BP 156 / 86 (auto/); mlc 04:59 BP 154 / 91 (auto/); mlc 04:59 Pulse 74 MON; Pulse Ox 95% ; mlc 05:19 BP 129 / 63 (auto/); mlc 05:20 Pulse 62 MON; Pulse Ox 94% ; mlc 05:39 Pulse 60 MON; Pulse Ox 96% ; mlc 05:39 BP 143 / 69 (auto/); mlc 05:59 Pulse 62 MON; Pulse Ox 92% ; mlc 05:59 BP 124 / 59 (auto/); mlc 06:19 BP 140 / 79 (auto/); mlc 06:19 Pulse 64 MON; Pulse Ox 95% ; mlc 06:26 Pulse 60 MON; Pulse Ox 95% ; mlc 08:36 BP 122 / 67 (auto/); ml6 08:36 Pulse 64 MON; Resp 16; Pulse Ox 94% on R/A; ml6 09:06 BP 106 / 52 (auto/); ml6 09:06 Pulse 64 MON; Resp 16; Pulse Ox 95% on R/A; ml6 09:36 BP 128 / 61 (auto/); ml6 09:36 Pulse 66 MON; Resp 16; Pulse Ox 97% on R/A; ml6 10:06 BP 113 / 56 (auto/); ml6 10:06 Pulse 66 MON; Resp 16; Pulse Ox 98% on R/A; Pain 0/10; ml6 10:20 BP 111 / 58; Pulse 65; Resp 16; Temp 98.3(O); Pulse Ox 98% on R/A; Pain 0/10; ml6 03:52 Body Mass Index 29.70 (93.89 kg, 177.80 cm) cz MDM: 03:45 ECG WITH READING ER PHYS+CARDIAG ordered. EDMS 04:30 Aspirin Chewable Tablet 243 mg PO once ordered. mm11 04:30 Referral Management Liaison/Pulse Ox/q 30 min VS ordered. mm11 04:30 IV Saline Lock ordered. mm11 04:30 Rhythm Strip to chart ordered. mm11 04:30 Undress patient appropriately for examination ordered. mm11 04:31 Basic Metabolic Profile Ordered. EDMS 04:31 CBC with Diff Ordered. EDMS 04:31 Cardiac Injury Profile Ordered. EDMS 04:31 Troponin Ordered. EDMS 04:31 Chest, 2 View (pa\E\lat) Ordered. EDMS 04:33 GI Cocktail - (Alum-Mag Hydroxide-Simeth 30 ml, Lidocaine 10 ml, Hyoscyamine 10 ml) PO mm11 once; Pre-mixed 50mL unit dose ordered. 04:38 Financial registration complete. [facility] 04:38 [place] [place] Payment Agreement was scanned into [employer] and attached to record. [facility] 04:54 Basic Metabolic Profile Reviewed. mm11 04:54 CBC with Diff Reviewed. mm11 04:54 Cardiac Injury Profile Reviewed. mm11 04:54 Troponin Reviewed. mm11 05:53 Repeat EKG (put time details section) ordered. mm11 05:53 Redraw CIP &Troponin (put time in details section) ordered. mm11 05:57 Redraw CIP &Troponin (put time in details section) complete. ml3 05:57 Repeat EKG (put time details section) complete. ml3 05:57 CARDIAC MARKER PANEL Ordered. EDMS 05:58 Misc Finish Grinder Order ordered. mm11 05:58 ECG WITH READING ER PHYS ordered. EDMS 05:59 Misc Finish Grinder Order complete. ml3 06:27 The patient was assigned to Observation Status due to uncertainty of mm11 diagnosis/disposition, and remained under my care. 13:55 T-Sheet-- Draft Copy was scanned into [employer] and attached to record. 13:56 ECG/EKG was scanned into [employer] and attached to record. gb Administered Medications: 04:38 Drug: Aspirin 243 mg [aspirin 81 mg chewable tablet (3 tabs)] Route: PO; [facility] [place] 05:25 Follow up: Response: No Adverse Reaction [facility] [place] 04:38 Drug: GI Cocktail - (Alum-Mag Hydroxide-Simeth Suspension 225 mg-200 mg-25 mg/5 mL 30 mlc ml, Lidocaine Liquid 2 % 10 ml, Hyoscyamine Liquid 10 ml) Route: PO; 05:25 Follow up: Response: Pain is decreased mlc Signatures: Dispatcher [employer] EDSC Oliverio Hoep RN RN cz Barnhardt, Gloria, Reg Reg gb Vijay Chow, Employment Instructional Associate Unit ml3 Ilia Garvey, DO DO mm11 Ilia Ziegler, NEREYDA RN ml6 Yulissa Churchill RN RN mlc Hook, Sandra Aria Rodríguez MD MD fg The chart was reviewed and I authenticate all verbal orders and agree with the evaluation and treatment provided.Attachments: 04:38 [place] [place] Payment Agreement [facility] 13:55 T-Sheet-- Draft Copy 13:56 ECG/EKG gb Chart Complete MTDD
== END 2016-07-08 10:25 | disposition home or self-care (01) ==
LOC: M ED 03:40
DX: R07.89 Other chest pain (principal); K21.9 Gastro-esophageal reflux disease without esophagitis; Z82.49 Family history of ischemic heart disease and other diseases of the circulatory system; R00.2 Palpitations; G47.30 Sleep apnea, unspecified; Z88.2 Allergy status to sulfonamides

== ENCOUNTER → 2018-10-05 | Outpatient (REF) | payer BC | LOC: M LAB REF 18:04 | PROVIDERS: ATTEND Physician Assistant | DX: R30.0 Dysuria (principal) ==

== ENCOUNTER → 2019-06-27 | Outpatient (REF) | payer BC ==
[2019-06-27 14:09] LABS: APPEARANCE, URINE CLEAR (CLEAR); BACTERIA, URINE AUTO NEGATIVE (NEGATIVE); BILIRUBIN, URINE AUTO NEGATIVE (NEGATIVE); BLOOD, URINE BLOOD 1+ (NEGATIVE); COLOR, URINE STRAW (YELLOW); GLUCOSE, URINE (UA) AUTO NEGATIVE (NEGATIVE); KETONE, URINE AUTO NEGATIVE (NEGATIVE); LEUKOCYTE ESTERASE, URINE AUTO NEGATIVE (NEGATIVE); MUCUS, URINE SMALL (NEGATIVE); NITRITE, URINE AUTO NEGATIVE (NEGATIVE); PROTEIN, URINE AUTO NEGATIVE (NEGATIVE); RBC, URINE AUTO 1 /HPF (0-3); SPECIFIC GRAVITY URINE AUTO 1.009 (1.002-1.035); SQUAMOUS EPITHELIAL CELL UR AU 0 /HPF (0-6); UROBILINOGEN, URINE AUTO 0.2 mg/dL (0.0-2.0); WBC, URINE AUTO 0 /HPF (0-3)
== END ==
LOC: M SMT 13:14
PROVIDERS: ATTEND Nurse Practitioner Women's Health
DX: R31.29 Other microscopic hematuria (principal)

== ENCOUNTER → 2019-07-11 | Outpatient (CLI) | payer BC | LOC: M WUC 15:25 | PROVIDERS: ATTEND Nurse Practitioner Women's Health | DX: Z12.5 Encounter for screening for malignant neoplasm of prostate (principal) | CPT/HCPCS: 36415; G0103 ==

== ENCOUNTER → 2019-09-13 | Outpatient (CLI) | payer BC ==
[~2019-09-13] MED LIST: ALPR0.5T3 PO; HYDR-3715 PO; NEXI20CA PO; VALS1TAB66 PO
== END ==
LOC: M LABSMTC 10:49
PROVIDERS: ATTEND Anesthesiology
DX: Z01.818 Encounter for other preprocedural examination (principal); Z11.59 Encounter for screening for other viral diseases

== ENCOUNTER 2019-09-16 07:42 | Day surgery (SDC) | payer BC ==
[~2019-09-16] VITALS: Ht 177.8 cm; Wt 97.0 kg
[~2019-09-16 07:42] MED LIST changes: -ALPR0.5T3 PO; -HYDR-3715 PO; +LR 1,000 ML IV ONE
[2019-09-16] MEDS ORDERED: ALPR0.5T3 PO (07:59)
[2019-09-16] MEDS ORDERED: SUCCINYLCHOLINE 100 MG/5 ML SYRINGE (J0330) As Ordered ONE (08:23)
[2019-09-16] MEDS ORDERED: MIDAZOLAM INJ 2MG/2ML VIAL (J2250 PER 1MG) As Ordered ONE (08:23)
[2019-09-16] MEDS ORDERED: ROCURONIUM BROMIDE 50 MG/5 ML VIAL As Ordered ONE (08:23)
[2019-09-16] MEDS ORDERED: fentaNYL 250 MCG/5 ML INJECTION (J3010) As Ordered ONE (08:23)
[2019-09-16] MEDS ORDERED: LIDOCAINE 2% 100MG/5ML SDV (FOR ANES.) As Ordered ONE (08:23)
[2019-09-16] MEDS ORDERED: propofoL 200 MG/20 ML VIAL As Ordered ONE (08:23)
[2019-09-16] MEDS ORDERED: SUGAMMADEX SODIUM 500 MG/5 ML VIAL (BRIDION) As Ordered ONE ×2 (09:05→10:37)
[2019-09-16] MEDS ORDERED: BUPIVACAINE HCL 0.25% 30ML VIAL As Ordered ONE (09:06)
[2019-09-16] MEDS ORDERED: ePHEDrine SULFATE 25 MG/5 ML(5MG/ML) SYRINGE As Ordered ONE (10:22)
[2019-09-16] MEDS ORDERED: METOCLOPRAMIDE INJ 10MG/2ML VIAL (J2765 PER 1) As Ordered ONE (10:32)
[2019-09-16] MEDS ORDERED: dexameTHASONE 4 MG/ML 1ML VIAL (J1100 PER 1MG) As Ordered ONE (10:32)
[2019-09-16] MEDS ORDERED: KETOROLAC 60 MG/2 ML VIAL As Ordered ONE (10:32)
[2019-09-16] MEDS ORDERED: ONDANSETRON 4MG/2ML VIAL As Ordered ONE (10:32)
[2019-09-16] MEDS ORDERED: ACETAMINOPHEN 1000MG 100ML IV BTL (OFIRMEV) (J0131 PER 10MG) As Ordered ONE (10:32)
[2019-09-16] MEDS ORDERED: LR 1,000 ML IV SCH (11:30)
[2019-09-16] MEDS ORDERED: ONDANSETRON 4MG/2ML VIAL IV PRN (11:30)
[2019-09-16] MEDS ORDERED: fentaNYL 100 MCG/2 ML INJECTION (J3010) IV PRN (11:30)
[2019-09-16] MEDS ORDERED: NORCO, ANEXSIA 5/325MG TABLET (HYDROcodone/ACETAMINOPHEN) PO PRN (11:45)
[2019-09-16] MEDS ORDERED: ACETAMINOPHEN TAB 650MG DOSE (2X325MG) PO PRN (11:45)
[2019-09-16] MEDS ORDERED: IBUPROFEN 600 MG TAB PO PRN (11:45)
[2019-09-16] MEDS: oxyCODONE 5MG TAB PO PRN ×2 (11:49→12:26)
[2019-09-16 13:40] VITALS: BP 155/90
[2019-09-16] MEDS ORDERED: HYDR-3715 PO (13:47)
--- NOTE | 2019-09-17 08:19 | RO ---
DATE OF PROCEDURE: 09/16/2019 PREOPERATIVE DIAGNOSIS: Symptomatic gallstones. POSTOPERATIVE DIAGNOSIS: Symptomatic gallstones. PROCEDURE PERFORMED: Laparoscopic cholecystectomy. SURGEON: Dr. Gilberto Ya [employer]FFIC CONTROL SPECIALIST: ANESTHESIA: General. INDICATIONS FOR PROCEDURE: The patient was seen in the office with complaints of upper abdominal pain with some associated nausea. A gallbladder ultrasound had shown one definite stone. The patient is for a laparoscopic cholecystectomy. OPERATIVE PROCEDURE: The patient was brought to the operating room and placed supine on the operating table. He was placed under general endotracheal anesthesia. The patient's abdomen was prepped and draped in a sterile fashion. 0.25% Marcaine was infiltrated at the trocar sites as needed. Initially, a short longitudinal supraumbilical incision was made and deepened to the fascia. A Veress needle was inserted and after a positive hanging drop test the abdomen was inflated with carbon dioxide gas. The fascia was scored along the midline and an 11 mm trocar was placed without difficulty. Initial inspection showed the normal-appearing right and left lobes of the liver. There was some omentum covering the inferior aspect of the right lobe. Visualized portions of the stomach and small and large bowel appeared normal. A 5 mm port was placed in the medial aspect of the left upper quadrant. A grasper was inserted and the omentum was pulled down away from the liver exposing the gallbladder. The gallbladder was perhaps slightly thick-walled, but not acutely inflamed. Two 5 mm ports were placed in the right upper quadrant. The patient was tilted to a reverse Trendelenburg position and rolled slightly to the left. The gallbladder was grasped and elevated. There was some abundant fibrofatty tissue around the proximal body and neck of the gallbladder. The hook cautery was used to carefully dissect through the pericholecystic tissues. A vascular structure was identified coming up the lateral aspect of the cystic duct and gallbladder neck. This was isolated and then doubly clipped and divided. The cystic duct was then clearly defined as it approached the gallbladder neck. The cystic duct was doubly clipped with hemoclips and divided. The gallbladder was then dissected free from the gallbladder bed using cautery dissection. The gallbladder was not perforated in the course of dissection. The gallbladder was placed in an Endopouch. The right upper quadrant was irrigated and inspected. There was no evidence of any bleeding or bile leak. The patient was returned to a flat position. The abdomen was deflated and the trocars were all removed. The gallbladder was recovered through the supraumbilical port site without difficulty. There was one palpable stone about 7 mm in diameter. The gallbladder was sent for permanent pathology. The fascia at the supraumbilical site was closed with two simple sutures of #2-0 Vicryl. The skin incisions were all closed with buried #4-0 Vicryl and Steri-Strips. Light dressings were applied. The patient tolerated the procedure well without apparent complication. He was awakened in the operating room, extubated and moved to the recovery room in stable condition.
== END 2019-09-16 13:53 | disposition home or self-care (01) ==
LOC: M SDC 07:42
PROVIDERS: ATTEND Surgery
DX: K80.10 Calculus of gallbladder with chronic cholecystitis without obstruction (principal); I10 Essential (primary) hypertension; K21.9 Gastro-esophageal reflux disease without esophagitis; N40.0 Benign prostatic hyperplasia without lower urinary tract symptoms; G47.30 Sleep apnea, unspecified; F41.9 Anxiety disorder, unspecified; Z79.899 Other long term (current) drug therapy; Z88.2 Allergy status to sulfonamides; Z88.8 Allergy status to other drugs, medicaments and biological substances
CPT/HCPCS: 47562; 88304; J0131; J0330; J1100; J1885; J2250; J2405; J2765; J3010

== ENCOUNTER → 2019-12-11 | Outpatient (CLI) | payer BC ==
[~2019-12-11] MED LIST changes: +ALPR0.5T3 PO; +HYDR-3715 PO; -LR 1,000 ML IV ONE
== END ==
LOC: M WUC 09:00
PROVIDERS: ATTEND Physician Assistant
DX: K80.20 Calculus of gallbladder without cholecystitis without obstruction (principal)

== ENCOUNTER → 2020-10-26 | Outpatient (REF) | payer BC ==
[2020-10-26 13:53] LABS: APPEARANCE, URINE CLEAR (CLEAR); BACTERIA, URINE AUTO NEGATIVE (NEGATIVE); BILIRUBIN, URINE AUTO NEGATIVE (NEGATIVE); BLOOD, URINE BLOOD NEGATIVE (NEGATIVE); COLOR, URINE STRAW (YELLOW); GLUCOSE, URINE (UA) AUTO NEGATIVE (NEGATIVE); KETONE, URINE AUTO NEGATIVE (NEGATIVE); LEUKOCYTE ESTERASE, URINE AUTO NEGATIVE (NEGATIVE); NITRITE, URINE AUTO NEGATIVE (NEGATIVE); PROTEIN, URINE AUTO NEGATIVE (NEGATIVE); RBC, URINE AUTO 0 /HPF (0-3); SPECIFIC GRAVITY URINE AUTO 1.003 (1.002-1.035); SQUAMOUS EPITHELIAL CELL UR AU 0 /HPF (0-6); UROBILINOGEN, URINE AUTO 0.2 mg/dL (0.0-2.0); WBC, URINE AUTO 0 /HPF (0-3)
== END ==
LOC: M SMT 12:47
PROVIDERS: ATTEND Urology
DX: R31.29 Other microscopic hematuria (principal)

== ENCOUNTER → 2020-12-16 | Outpatient (REF) | payer BC | LOC: M LAB REF 20:04 | PROVIDERS: ATTEND Urology | DX: N40.1 Benign prostatic hyperplasia with lower urinary tract symptoms (principal) ==

== ENCOUNTER → 2021-10-26 | Outpatient (REF) | payer BC ==
[2021-10-26 13:29] LABS: APPEARANCE, URINE CLEAR (CLEAR); BACTERIA, URINE AUTO NEGATIVE (NEGATIVE); BILIRUBIN, URINE AUTO NEGATIVE (NEGATIVE); BLOOD, URINE BLOOD 1+ (NEGATIVE); COLOR, URINE COLORLESS (YELLOW); GLUCOSE, URINE (UA) AUTO NEGATIVE (NEGATIVE); KETONE, URINE AUTO NEGATIVE (NEGATIVE); LEUKOCYTE ESTERASE, URINE AUTO NEGATIVE (NEGATIVE); MUCUS, URINE SMALL (NEGATIVE); NITRITE, URINE AUTO NEGATIVE (NEGATIVE); PROTEIN, URINE AUTO NEGATIVE (NEGATIVE); RBC, URINE AUTO 0 /HPF (0-3); SPECIFIC GRAVITY URINE AUTO 1.002 (1.002-1.035); SQUAMOUS EPITHELIAL CELL UR AU 0 /HPF (0-6); UROBILINOGEN, URINE AUTO 0.2 mg/dL (0.0-2.0); WBC, URINE AUTO 0 /HPF (0-3)
== END ==
LOC: M SMT 12:55
PROVIDERS: ATTEND Physician Assistant
DX: N40.0 Benign prostatic hyperplasia without lower urinary tract symptoms (principal)

== ENCOUNTER → 2022-09-05 | Outpatient (CLI) | payer BC | LOC: M WUC 11:32 | PROVIDERS: ATTEND Internal Medicine Cardiovascular Disease | DX: J44.9 Chronic obstructive pulmonary disease, unspecified (principal) ==

== ENCOUNTER → 2024-01-16 | Outpatient (CLI) | payer BC ==
[2024-01-16 12:50] LABS: APPEARANCE, URINE CLEAR (CLEAR); BACTERIA, URINE AUTO NEGATIVE (NEGATIVE); BILIRUBIN, URINE AUTO NEGATIVE (NEGATIVE); BLOOD, URINE BLOOD 1+ (NEGATIVE); COLOR, URINE STRAW (YELLOW); GLUCOSE, URINE (UA) AUTO NEGATIVE (NEGATIVE); KETONE, URINE AUTO NEGATIVE (NEGATIVE); LEUKOCYTE ESTERASE, URINE AUTO NEGATIVE (NEGATIVE); NITRITE, URINE AUTO NEGATIVE (NEGATIVE); PROTEIN, URINE AUTO NEGATIVE (NEGATIVE); RBC, URINE AUTO 1 /HPF (0-3); SPECIFIC GRAVITY URINE AUTO 1.005 (1.002-1.035); SQUAMOUS EPITHELIAL CELL UR AU 0 /HPF (0-6); UROBILINOGEN, URINE AUTO 0.2 mg/dL (0.0-2.0); WBC, URINE AUTO 1 /HPF (0-3)
== END ==
LOC: M WUC 11:13
PROVIDERS: ATTEND Physician Assistant
DX: Z12.5 Encounter for screening for malignant neoplasm of prostate (principal); R36.1 Hematospermia
CPT/HCPCS: 36415; 81001; 87086; G0103

== ENCOUNTER → 2024-02-01 | Outpatient (CLI) | payer BC | LOC: M RAD 11:11 | PROVIDERS: ATTEND Physician Assistant | DX: R36.1 Hematospermia (principal); I86.1 Scrotal varices; N50.3 Cyst of epididymis ==

== ENCOUNTER → 2025-02-18 | Outpatient (CLI) | payer BC | LOC: M RAD 08:01 | PROVIDERS: ATTEND Internal Medicine Gastroenterology | DX: K75.81 Nonalcoholic steatohepatitis (NASH) (principal) ==